=== PATIENT | male | born 1995 | race Caucasian/White ===

== ENCOUNTER 2020-05-05 14:35 | Emergency (ER) | payer OTHER ==
[~2020-05-05] VITALS: Ht 175.3 cm; Wt 80.0 kg
[2020-05-05 14:36] VITALS: BP 123/71
[2020-05-05] MEDS ORDERED: RIZA10TA58 PO (14:48)
== END 2020-05-05 16:05 | disposition home or self-care (01) ==
LOC: M ED 14:35
DX: T33.821A Superficial frostbite of right foot, initial encounter (principal); T33.822A Superficial frostbite of left foot, initial encounter; X31.XXXA Exposure to excessive natural cold, initial encounter; Y92.9 Unspecified place or not applicable; Y93.9 Activity, unspecified; Y99.1 Military activity; Z88.0 Allergy status to penicillin